=== PATIENT | male | born 1965 | race Caucasian/White ===

== ENCOUNTER → 2017-09-02 | Emergency (ER) | payer OTHER ==
[~2017-09-02] VITALS: Ht 177.8 cm; Wt 99.8 kg
[~2017-09-02] MED LIST: AMLODIPINE BES2.5 MG PO; ATACAND32 MG PO; JANUVIA50 MG PO; LEVAQUIN500 MG PO; TOPROL XL25 M1 PO; TRAMADOL HCL50 MG PO
== END | disposition home or self-care (01) ==
LOC: ER 19:00 → EDBD 19:08
DX: N20.2 Calculus of kidney with calculus of ureter (principal); R10.32 Left lower quadrant pain

== ENCOUNTER 2024-09-02 16:46 | Outpatient (CLI) | payer OTHER | END 2024-09-02 23:00 | disposition home or self-care (01) | LOC: LAB 16:46 | PROVIDERS: ATTEND Urology | DX: R97.20 Elevated prostate specific antigen [PSA] (principal) ==

== ENCOUNTER 2024-09-23 07:06 | Outpatient (CLI) | payer OTHER | END 2024-09-23 07:08 | disposition home or self-care (01) | LOC: SONOGRAMA 07:06 | PROVIDERS: ATTEND Urology | DX: R97.20 Elevated prostate specific antigen [PSA] (principal) ==